=== PATIENT | female | born 1960 | race Caucasian/White ===

== ENCOUNTER → 2020-06-01 | Outpatient (CLI) | payer OTHER ==
[~2020-06-01] MED LIST: ASPIRIN CHEWABL81 MG PO; BUPRENORPHIN-N1 EACH PO; CELEBREX200 MG PO; EPITOL200 MG PO; FISH OIL 1,0001 EAC1 PO; FUROSEMIDE40 MG PO; K-DUR TAB 10 M10 MEQ PO; K-TAB ER20 MEQ PO; KLONOPIN1 MG PO; LEVOTHYROXINE150 MC1 PO; MELOXICAM15 MG PO; MYCAMINE100 MG INJ; NEURONTIN 400400 MG PO; NEURONTIN800 MG PO; NITROGLYCERIN0.4 MG SL; PHENERGAN 25 MG25 M1 PO; PREDNISONE20 MG PO; PRINIVIL20 MG PO; PROAIR DIGIHAL90 MCG INH; PROTONIX40 MG PO; PROZAC 20 MG CA20 MG PO; SUBOXONE 8 MG-1 EACH SL; SYNTHROID 150150 MCG PO; SYNTHROID200 MCG PO; TEGRETOL 200 M200 MG PO; VITAMIN D PO; ZYVOX 600 MG T600 MG PO
== END ==
LOC: OPSV2 11:10
DX: Z01.812 Encounter for preprocedural laboratory examination (principal)

== ENCOUNTER → 2020-06-05 | Day surgery (SDC) | payer OTHER | END | disposition home or self-care (01) | LOC: OR 06:09 | DX: R51.9 Headache, unspecified (principal); F41.9 Anxiety disorder, unspecified; F31.9 Bipolar disorder, unspecified; J44.9 Chronic obstructive pulmonary disease, unspecified; I10 Essential (primary) hypertension; K21.9 Gastro-esophageal reflux disease without esophagitis; E03.9 Hypothyroidism, unspecified; M06.9 Rheumatoid arthritis, unspecified; D64.9 Anemia, unspecified; F17.210 Nicotine dependence, cigarettes, uncomplicated; I25.2 Old myocardial infarction; Z79.899 Other long term (current) drug therapy | CPT/HCPCS: J0690; J1642; J2001; J2250; J2704; J3010; J7030; J7120 ==